=== PATIENT | male | born 1980 | race American Indian/Alaskan Native ===

== ENCOUNTER 2020-06-10 14:56 | Emergency (ER) | payer SELFPAY ==
--- NOTE | 2020-06-10 15:21 | Event Note ---
ED Screening Note Date of service: 06/10/20 Time: 15:19 ED Screening Note: Patient complains of epigastric pain radiating up into his central chest and back with bloody mucousy stools and shortness of breath since last night. He reports past medical history of hypertension. He denies any other significant past history He states that he drinks occasionally. He is not on any blood thinners This initial assessment/diagnostic orders/clinical plan/treatment(s) is/are subject to change based on patients health status, clinical progression and re- assessment by fellow clinical providers in the ED. Further treatment and workup at subsequent clinical providers discretion. Patient/guardian urged not to elope from the ED as their condition may be serious if not clinically assessed and managed. Initial orders include: labs/eKg/cxr
[2020-06-10 15:46] LABS: Basophils # (Auto) 0.1 K/mm3 (0.0-0.1); Basophils % (Auto) 0.9 % (0.0-1.8); Eosinophils # (Auto) 0.1 K/mm3 (0.0-0.4); Hematocrit 42.3 % (35.5-45.6); Hemoglobin 14.5 gm/dl (11.8-15.2); Lymphocytes # (Auto) 1.8 K/mm3 (1.2-5.4); Mean Corpuscular HGB Conc 34 % (32-34); Mean Corpuscular Volume 88 fl (84-94); Monocytes # (Auto) 0.6 K/mm3 (0.0-0.8); Monocytes % (Auto) 9.6 % (0.0-7.3); Platelet Count 230 K/mm3 (140-440); Red Blood Count 4.81 M/mm3 (3.65-5.03)
--- NOTE | 2020-06-10 15:48 | XRay Report ---
CHEST 2 VIEWS INDICATION / CLINICAL INFORMATION: Chest Pain. COMPARISON: None available. FINDINGS: SUPPORT DEVICES: None. HEART / MEDIASTINUM: No significant abnormality. LUNGS / PLEURA: No significant pulmonary or pleural abnormality. No pneumothorax. ADDITIONAL FINDINGS: No significant additional findings. IMPRESSION: No significant abnormality Signer Name: Judah Steven MD FACR Signed: 06/10/2020 3:43 PM Workstation Name: [id number]
[2020-06-10 15:57] LABS: INR 0.93 (0.87-1.13)
[2020-06-10 15:58] LABS: Partial Thromboplastin Time 22.2 Sec. (24.2-36.6)
[2020-06-10 16:07] LABS: Alanine Aminotransferase 17 units/L (7-56); Albumin 4.5 g/dL (3.9-5); BUN/Creatinine Ratio 16; Blood Urea Nitrogen 16 mg/dL (9-20); Calcium 9.5 mg/dL (8.4-10.2); Hemolysis Index 6
[2020-06-10] MEDS ORDERED: cloNIDine 0.2 MG TAB PO ONE (21:07)
--- NOTE | 2020-06-10 21:17 | Emergency Department Report ---
ED Abdominal Pain HPI - General Chief Complaint: Chest Pain Stated Complaint: CHEST PAIN Time Seen by Provider: 06/10/20 20:28 Source: patient Mode of arrival: Ambulatory Limitations: No Limitations - History of Present Illness Initial Comments: 40-year-old male, history of hypertension, presents to ED with abdominal pain. Patient reports epigastric pain on yesterday after eating pizza and potato chips. Patient states he developed very sharp pain. States he immediately felt as if he needed to use the bathroom and have a bowel movement. Patient states there was bright red blood mixed with stool. He reports some history of blood in his stool in the past, but states that was secondary to straining. Patient reports he was recently released from [facility] after being incarcerated for several years. Patient states [facility] they had him on 4 different blood pressure medications. Patient states he was released with only one medication and ran out 2 days ago. Patient does not know the name of the medicine. MD Complaint: abdominal pain -: days(s) (2) Location: epigastric Radiation: chest Migration to: no migration Severity: moderate Severity scale (0 -10): 0 Quality: sharp Consistency: now resolved Improves With: nothing Worsens With: eating Associated Symptoms: hematochezia. denies: nausea, vomiting, diarrhea, melena - Related Data Previous Rx's Medication Instructions Recorded Last Taken Type Pantoprazole [Protonix TAB] 20 mg PO QDAY #30 tablet. 06/10/20 Unknown Rx amLODIPine 10 mg PO DAILY #30 tab 06/10/20 Unknown Rx Allergies Allergy/AdvReac Type Severity Reaction Status Date / Time No Known Allergies Allergy Verified 06/10/20 15:09 ED Review of Systems ROS: Stated complaint: CHEST PAIN Other details as noted in HPI Comment: All other systems reviewed and negative Constitutional: denies: chills, fever Gastrointestinal: abdominal pain, hematochezia. denies: nausea, vomiting, diarrhea, hematemesis, melena ED Past Medical Hx - Past Medical History Hx Hypertension: Yes - Social History Smoking Status: Current Every Day Smoker Substance Use Type: None - Medications Home Medications: Home Medications Medication Instructions Recorded Confirmed Last Taken Type Pantoprazole [Protonix TAB] 20 mg PO QDAY #30 tablet. 06/10/20 Unknown Rx amLODIPine 10 mg PO DAILY #30 tab 06/10/20 Unknown Rx ED Physical Exam - General Limitations: No Limitations General appearance: alert, in no apparent distress - Head Head exam: Present: atraumatic, normocephalic - Eye Eye exam: Present: normal appearance, EOMI - ENT ENT exam: Present: mucous membranes moist - Neck Neck exam: Present: normal inspection - Respiratory Respiratory exam: Present: normal lung sounds bilaterally. Absent: respiratory distress - Cardiovascular Cardiovascular Exam: Present: regular rate, normal rhythm - GI/Abdominal GI/Abdominal exam: Present: soft. Absent: distended, tenderness - Rectal Rectal exam: Present: heme (-) stool, other (chaperoned by JANICE Lazo) - Extremities Exam Extremities exam: Present: normal inspection - Neurological Exam Neurological exam: Present: alert, oriented X3 - Psychiatric Psychiatric exam: Present: normal affect, normal mood - Skin Skin exam: Present: warm, dry, intact, normal color ED Course Vital Signs 06/10/20 06/10/20 06/10/20 15:07 20:32 20:33 Temperature 98.2 F Pulse Rate 102 H 63 Respiratory 20 15 18 Rate Blood Pressure 188/112 O2 Sat by Pulse 100 100 Oximetry 06/10/20 06/10/20 06/10/20 21:00 21:15 21:30 Temperature Pulse Rate 67 Respiratory 12 16 Rate Blood Pressure 180/105 180/113 183/118 O2 Sat by Pulse 99 98 Oximetry ED Medical Decision Making - Lab Data Result diagrams: 06/10/20 15:32 06/10/20 15:32 - EKG Data -: EKG Interpreted by Me EKG shows normal: sinus rhythm, axis, intervals, QRS complexes, ST-T waves Rate: normal - EKG Data Interpretation: LVH - Radiology Data Radiology results: report reviewed, image reviewed Critical care attestation.: If time is entered above; I have spent that time in minutes in the direct care of this critically ill patient, excluding procedure time. ED Disposition Clinical Impression: Uncontrolled hypertension, Abdominal pain, Rectal bleeding Disposition: DC-01 TO HOME OR SELFCARE Is pt being admited?: No Condition: Stable Instructions: Vegan Diet, Gastrointestinal Bleeding, [id number], Gastroesophageal Reflux Disease, Adult, [id number], Managing Your Hypertension, Hypertension (ED) Prescriptions: amLODIPine 10 mg PO DAILY #30 tab Pantoprazole [Protonix TAB] 20 mg PO QDAY #30 tablet. Referrals: PRIMARY CARE, [Primary Care Provider] - 3-5 Days CATRACHITA LEONE MD [Staff Physician] - 3-5 Days YA SANDERS MD [Staff Physician] - 3-5 Days [facility] [Provider Group] - 3-5 Days [facility] [Provider Group] - 3-5 Days Time of Disposition: 22:12
--- NOTE | 2020-06-10 22:00 | XRay Report ---
ABDOMEN 3 VIEW(S) INDICATION / CLINICAL INFORMATION: abdominal pain. COMPARISON: None available. FINDINGS: TUBES / LINES: None. BOWEL GAS PATTERN: No significant abnormality. FREE AIR / EXTRALUMINAL GAS: None seen. ADDITIONAL FINDINGS: No significant additional findings. CHEST: Visualized chest shows no significant abnormality. IMPRESSION: No significant abnormality. Signer Name: Miguel Steven MD Signed: 06/10/2020 9:56 PM Workstation Name: [id number]
[2020-06-10 22:22] VITALS: BP 164/119
--- NOTE | 2020-06-11 13:47 | Electrocardiograph Report ---
[facility] Test Date: 2020-06-10 Test Time: 15:12:03 Pat Name: OCTAVIO SHAH Department: Room: Gender: M [employer]: : [id number] Requested By: SEBASTIÁN AUSTIN Order Number: [id number] Reading MD: Anthony Malagon Measurements Intervals [place] Rate: 78 P: 60 NH: 160 QRS: 72 QRSD: 92 T: 64 QT: 379 QTc: 432 Interpretive Statements Sinus rhythm Left ventricular hypertrophy No previous ECG available for comparison Electronically Signed On 06-11-2020 13:47:15 EDT by Anthony Malagon
== END 2020-06-10 22:22 | disposition home or self-care (01) ==
LOC: ED 14:56
DX: K62.5 Hemorrhage of anus and rectum (principal); R10.13 Epigastric pain; I10 Essential (primary) hypertension; F17.200 Nicotine dependence, unspecified, uncomplicated; Z79.899 Other long term (current) drug therapy
CPT/HCPCS: 36415; 71046; 74022; 80053; 83690; 84484; 85025; 85610; 85730; 93005